=== PATIENT | female | born 1955 | race Caucasian/White ===

== ENCOUNTER 2019-01-18 10:11 | Emergency (ER) | payer MEDICARE ==
[2019-01-18 10:44] LABS: #Basophils 0.1 thou/uL (0.0-0.2); #Lymphocytes 2.9 thou/uL (1.20-3.40); #Neutrophils 9.4 thou/uL (1.40-6.50); %Basophils 0.8 % (0.0-1.0); %Eosinophils 0.2 % (0.0-10.0); %Lymphocytes 21.8 % (21.0-51.0); %Monocytes 7.4 % (0.0-10.0); %Neutrophils 69.9 % (42.0-75.0); Hemoglobin 14.9 g/dL (12.0-16.0); Mean Corpuscular HGB CONC 31.4 g/dL (32.0-36.0); Mean Corpuscular Hemoglobin 26.3 pg (27.0-31.0); Mean Corpuscular Volume 83.8 fL (78.0-98.0); Mean Platelet Volume 10.1 fL (7.4-10.4); Platelet Count 291 thou/uL (130-400); RBC Distribution Width 12.1 % (11.5-14.5); Red Blood Cell (RBC) Count 5.66 mill/uL (4.20-5.40); White Blood Cell (WBC) Count 13.5 thou/uL (4.8-10.8)
--- NOTE | 2019-01-18 10:57 | RAD ---
Exam: Chest one view HISTORY:Pain Comparison: None FINDINGS: Lungs: No masses or consolidation. There is granulomatous calcification. Cardiac silhouette: Normal size Pulmonary vessels: Normal Pleural Spaces: Clear Pneumothorax: None Osseous abnormalities: None of acuity. IMPRESSION: No focal consolidation.
[2019-01-18 11:10] LABS: ALT (SGPT) 28 U/L (8-55); AST (SGOT) 19 U/L (5-34); Albumin 4.7 g/dL (3.4-4.8); Alkaline Phosphatase 85 U/L (40-110); Anion Gap 17 mmol/L (10-20); BUN (Urea Nitrogen) 12 mg/dL (9.8-20.1); Bilirubin, Total 0.5 mg/dL (0.2-1.2); Calc. Creatinine Clearance 0 mL/min (70-130); Calcium 10.1 mg/dL (7.8-10.44); Carbon Dioxide 22 mmol/L (23-31); Chloride 102 mmol/L (98-107); Estimated GFR-MDRD 78; Globulin 3.8 g/dL (2.4-3.5); Glucose 126 mg/dL (80-115); Potassium 3.4 mmol/L (3.5-5.1); Protein, Total 8.5 g/dL (6.0-8.3); Sodium 138 mmol/L (136-145)
--- NOTE | 2019-01-18 11:53 | CT ---
CTA Angio Chest W WO Con 01/18/2019 11:13 AM Indication: Chest discomfort and elevated d-dimer Technique: Multiple CTA images were obtained of the thorax with IV contrast. 3-D rendering: MIP trini nstructed images were created and reviewed. Comparison: No relevant prior studies available. Findings: Respiratory motion artifact slightly limits image detail of the lobar and segmental pulmona ry arterial branches. Pulmonary arteries: No definite central pulmonary embolus is demonstrated. Heart and Aorta: There are mild calcifications involving the thoracic aorta. Mediastinum:Normal appearing. No enlarged lymph nodes. Lungs:There are calcified granuloma in the right lower lobe. Pleural space: Clear. Upper Abdomen: There is fatty infiltration of liver. There are small gallstone within the gallbladde r neck. There are numerous calcified granuloma involving the spleen. Visualized adrenal glands are normal appearing. Small hiatal hernia. Osseous Structures: No acute osseous abnormality. There is scattered degenerative and osteoarthritic change present. Soft tissues:No abnormality. Other findings:None. Impression: 1. No definite central pulmonary embolus demonstrated. 2. Findings prior granulomatous disease. 3. Fatty liver. 4. Cholelithiasis. 5. Small hiatal hernia.
[2019-01-18 12:02] LABS: Bilirubin Negative (Negative); Blood, Urine Negative (Negative); Clarity Clear (Clear); Glucose, Urine (Dipstick) Negative (Negative); Leukocyte Negative (Negative); Nitrite Negative (Negative); Protein, Urine (Dipstick) Negative (Neg-Trace); Urobilinogen 0.2 mg/dL (Less than 2)
[2019-01-18] MEDS ORDERED: Aspirin Chewable 81 MG TAB ONE (12:17)
[2019-01-18] MEDS ORDERED: Metoprolol Tartrate 50 MG TAB ONE (12:46)
== END 2019-01-18 13:06 | disposition short-term general hospital (02) ==
LOC: NAV ERS 10:11
DX: R00.0 Tachycardia, unspecified (principal); R07.9 Chest pain, unspecified; E78.00 Pure hypercholesterolemia, unspecified; E78.5 Hyperlipidemia, unspecified; F41.9 Anxiety disorder, unspecified
CPT/HCPCS: 71045; 71275; 80053; 81003; 83880; 84443; 84484; 85025; 85379; 93005; 96374